=== PATIENT | male | born 1950 | race Caucasian/White ===

== ENCOUNTER → 2023-05-20 08:02 | Outpatient (REF) | payer BC, SELFPAY | LOC: DHCBC/DCA 08:02 | PROVIDERS: ATTENDING PHYSICIAN Internal Medicine Cardiovascular Disease; FAMILY PHYSICIAN Internal Medicine Geriatric Medicine | DX: R06.09 Other forms of dyspnea (principal); I10 Essential (primary) hypertension | CPT/HCPCS: 78452; 93017; A9500 ==

== ENCOUNTER 2023-10-28 11:42 | Emergency (ER) | payer BC, SELFPAY ==
[2023-10-28 11:55] VITALS: BP 174/75
[2023-10-28 12:25] LABS: % Basophils 0.7 % (0-2); % Immature Granulocytes 0.2 % (0-0.5); % Lymphocytes 18.1 % (20.5-51.1); % Monocytes 7.4 % (1.7-9.3); % Neutrophils 70.6 % (42.2-75.2); Absolute Eosinophils 0.2 10^3/uL (0-0.7); Absolute Monocytes 0.4 10^3/uL (0.1-0.6); Absolute Neutrophils 3.8 10^3/uL (1.4-6.5); Hematocrit 40.9 % (39.0-52.0); Hemoglobin 14.6 g/dL (13.0-18.0); Mean Corp Hgb Conc. 35.7 g/dL (33.0-37.0); Mean Corpuscular Hgb 30.5 pg (27.0-31.0); Mean Corpuscular Volume 85.6 fL (80.0-94.0); Nucleated Red Blood Cells % 0 % (-); Platelet Count 178 10^3/uL (130-400); Red Blood Cell Count 4.78 10^6/uL (4.70-6.10); Red Cell Dist. Width 11.9 % (11.5-14.5); White Blood Cell Count 5.4 10^3/uL (4.8-10.8)
[2023-10-28 12:27] LABS: Urine Albumin Negative (Neg - Trace); Urine Bilirubin Negative (Negative); Urine Character Clear (Clear); Urine Color Yellow; Urine Glucose Negative (Negative); Urine Ketone Negative (Negative); Urine Leukocyte Negative (Negative); Urine Nitrite Negative (Negative); Urine Occult Blood Negative (Negative); Urine Specific Gravity 1.005 (<1.030); Urine Urobilinogen Negative (Neg - 1+)
[2023-10-28 12:38] LABS: ALT (SGPT) 15 U/L (0-50); AST (SGOT) 25 U/L (17-59); Albumin 4.7 g/dl (3.5-5.0); Alkaline Phosphatase 71 U/L (38-126); Blood Urea Nitrogen 12 mg/dl (9-20); Carbon Dioxide 25 mmol/L (22-30); Chloride 105 mmol/L (98-107); Glucose 108 mg/dl (70-99); Potassium 4.2 mmol/L (3.5-5.1); Sodium 138 mmol/L (135-145); Total Bilirubin 0.8 mg/dl (0.2-1.3); Total Protein 7.3 g/dl (6.3-8.2); eGFR > 60.00
--- NOTE | 2023-10-28 12:49 | ED.GENMED ---
History of Present Illness
General
Chief Complaint: Male Genito-Urinary Symptoms
Source: patient
Time Seen by Provider: 10/28/23 12:39
History of Present Illness
History of Present Illness:
73yoM with a history of hypertension, hyperlipidemia, and chronic neck pain on PRN Percocet presenting for evaluation of low back pain. Patient reports left lower back pain that started about 5 days ago. The pain radiates to the left testicle and he
states it feels like someone is pulling on the testicle. He states he felt a lump on the bottom of his left testicle. He also is having frequent urination. He was lifting a heavy piece of luggage the day before his symptoms started but he is unsure
if this is related. He denies any direct trauma. He denies any fevers, dysuria, hematuria, vomiting, abdominal pain.
Past History
Past History
ED Past Medical History: Asthma, GERD, HTN, Hypercholesterolemia and Other (agree with past medical history)
ED Past Surgical History: Orthopedic (righ knee replacement)
Social History
Tobacco: Non-smoker
Alcohol: Chronic alcoholic
Living: with family
Phy Exam
General Physical Exam
General Presentation: well appearing and no apparent distress
General age: appears stated age
General Skin: warm and dry
General Habitus: normal
General Mental: alert
Pulmonary Exam
Pulmonary Exam: no respiratory distress
Gastrointestinal Exam
Gastrointestinal Exam: non tender, soft, non distended and no cva tenderness
Genitourinary Exam Male
Exam Male: circumcised and other (+L testicular tenderness. No erythema or swelling noted. Small mass palpated inferiorly. )
Testicular Exam: Tender to palpation: Left
Musculoskeletal Exam
Musculoskeletal Exam: other (+Tenderness to palpation in the L paraspinal musculature in the lumbar region. No skin changes or midline spinous process tenderness. )
Skin Exam
Skin Exam: normal color and warm/dry
Psychiatric Exam
Psychiatric Exam: normal mood/affect
Course
Orders/Labs/Results
Orders:
Orders
10/28/23 12:04
Complete Blood Count/With Diff Urgent
Comprehensive Metabolic Panel Urgent
Urinalysis Reflex To Culture Urgent
Date Specimen was Collected: 10/28/23
Time Specimen was Collected: 11:59
10/28/23 12:47
US Scrotum Urgent
Comment:
Reason For Exam: L testicular pain, lump
10/28/23 12:48
CT Abd/pel Without Iv Or Oral Urgent
Comment:
Reason For Exam: L lower back pain radiating to testicle
Abnormal Lab Results
10/28/23
12:04
Absolute Lymphs (auto) 1.0 L 10^3/uL
(1.2-3.4)
Lymphocytes % 18.1 L %
(20.5-51.1)
Glucose 108 H mg/dl
(70-99)
10/28/23 12:04
10/28/23 12:04
Vital Signs
Initial and Last Documented VS:
Initial Vital Signs
Temp Pulse Resp BP Pulse Ox
98.2 F 50 18 174/75 95
10/28/23 11:55 10/28/23 11:55 10/28/23 11:55 10/28/23 11:55 10/28/23 11:55
Last Documented Vital Signs
Temp Pulse Resp BP Pulse Ox
98.6 F 50 18 158/81 100
10/28/23 15:32 10/28/23 11:55 10/28/23 11:55 10/28/23 15:32 10/28/23 15:32
MDM/Problems Addressed
Differential Diagnosis Includes:
73yoM here with L lower back pain that radiates into L testicle x 5 days. Feels like testicle is pulling. +Urinary frequency. He is hypertensive with otherwise normal vital signs. He is well-appearing in no acute distress. There is reproducible
tenderness in the left paraspinal musculature. Left testicular tenderness present without swelling or erythema. Differential diagnosis includes but is not limited to: Musculoskeletal, kidney stone, UTI, epididymitis, orchitis, hernia, doubt
testicular torsion
Initial ED plan: Check CBC, CMP, UA, scrotal ultrasound, and CT abdomen.
*Critical Care Note
Total Time (30-74mins, 75-104mins- exclusive of procedures): Not Applicable
Update Note
Update Note:
Labs unremarkable including normal white count and renal function. UA bland without microscopic hematuria or signs of infection. CT shows moderate constipation but is otherwise negative for acute findings. Scrotal ultrasound shows benign left
testicular cyst as well as a mildly complex small left hydrocele. Normal blood flow present. No indication for admission at this time. Suspect pain may be musculoskeletal. Advised follow-up with PCP and urology. ED return precautions discussed.
Patient expressed understanding and is agreeable to plan. Patient discharged in stable condition.
ED Attending Note
-
Portions of this chart may have been created with voice recognition software.� Occasional wrong word or��sound alike� substitutions may have occurred due to the inherent limitations of voice recognition software.
Discharge Plan
Departure
Patient Disposition: Home (Routine Discharge)
Date of Disposition: 10/28/23
Time of Disposition: 15:17
Patient with high blood pressure during this ER visit?: Yes
Discharge Problem:
Acute left-sided low back pain, Left testicular pain
Instructions: Back Pain
Prescriptions:
No Action
quinapril-hydrochlorothiazide 1 EACH tablet
1 ea PO BID
pseudoephedrine-guaifenesin [Mucinex D] 1 TABLET tablet extended release 12 hr
1 tab PO PRN (Reason: congestion)
oxycodone-acetaminophen [Percocet] 10 MG/325 MG tablet
1 tab PO Q4HPRN PRN (Reason: R knee pain)
amlodipine-benazepril 1 EACH capsule
5 mg PO DAILY
clonidine 1 EACH patch weekly
0.1 mg PO BID
albuterol [Proventil] 17 GM aerosol
17 gm IH PRN (Reason: breathing problem)
ezetimibe [Zetia] 10 MG tablet
10 mg PO DAILY
bupropion HCl 300 MG tablet extended release 24 hr
300 mg PO DAILY
mometasone-formoterol [Dulera] 13 GM HFA aerosol inhaler
2 puff inhalation BID
oxycodone-acetaminophen 5 MG/325 MG tablet
1 tab PO Q4HPRN PRN (Reason: pain) Qty: 12 0RF
Lipitor:
40 mg PO DAILY
Referrals:
Deandre Jackson DO [Family Provider] -
Aguilar Quinn MD [Active] -
Activity Restrictions/Additional Instructions:
Please follow-up with your family doctor and urology. Return to the ER with any new or worsening symptoms.
Interventions
Interventions:
*Risk Screen - Suicide Last Done: 10/28/23 11:55
*General Assessment Last Done: 10/28/23 11:55
*Neglect/Abuse Screening Last Done: 10/28/23 11:55
ED- Fall Risk Assessment Last Done: 10/28/23 15:44
*ED COVID-19 Vaccine History Last Done: 10/28/23 11:55
*Nursing Disposition Last Done: 10/28/23 15:44
ED-Male Genitourinary Assessment Last Done: 10/28/23 13:02
Discharge Date and Time
Discharge Date/Time: 10/28/23 15:45
Print Language: MONGOLIAN
[2023-10-28 15:32] VITALS: BP 158/81
== END 2023-10-28 15:45 | disposition home or self-care (01) ==
LOC: EMR 11:42
PROVIDERS: EMERGENCY PHYSICIAN Emergency Medicine; FAMILY PHYSICIAN Internal Medicine Geriatric Medicine
DX: M54.50 Low back pain, unspecified (principal); N50.812 Left testicular pain; K59.00 Constipation, unspecified; M54.2 Cervicalgia; R35.0 Frequency of micturition; X50.0XXA Overexertion from strenuous movement or load, initial encounter; N44.2 Benign cyst of testis; N43.3 Hydrocele, unspecified; I10 Essential (primary) hypertension; E78.00 Pure hypercholesterolemia, unspecified; J45.909 Unspecified asthma, uncomplicated; G89.29 Other chronic pain; K21.9 Gastro-esophageal reflux disease without esophagitis; Z96.651 Presence of right artificial knee joint; Z88.1 Allergy status to other antibiotic agents; Z88.3 Allergy status to other anti-infective agents; Z88.0 Allergy status to penicillin; Z88.2 Allergy status to sulfonamides
CPT/HCPCS: 99284; 74176; 76870; 80053; 81003; 85025; 93976

== ENCOUNTER → 2024-01-23 14:40 | Outpatient (REF) | payer BC, SELFPAY | LOC: HWRAD 14:40 | PROVIDERS: ATTENDING PHYSICIAN Internal Medicine Critical Care Medicine | DX: R91.1 Solitary pulmonary nodule (principal) | CPT/HCPCS: 71046 ==

== ENCOUNTER → 2025-01-27 10:58 | Outpatient (REF) | payer BC, SELFPAY | LOC: HWRCS 10:58 | PROVIDERS: ATTENDING PHYSICIAN Internal Medicine Cardiovascular Disease; FAMILY PHYSICIAN Internal Medicine Geriatric Medicine | DX: I49.3 Ventricular premature depolarization (principal); I51.7 Cardiomegaly | CPT/HCPCS: 93306 ==